=== PATIENT | female | born 1975 | race Caucasian/White ===

== ENCOUNTER 2017-10-17 09:16 | Emergency (ER) | payer OTHER, SELFPAY ==
[2017-10-17 09:39] VITALS: BP 141/81; PULSE 71; RESP 20; TEMP 37.3; O2SAT 96; BMI 43.1
[2017-10-17 09:50] LABS: UTC Influenza A Antigen Positive (Negative); UTC Influenza B Antigen Negative (Negative)
--- NOTE | 2017-10-17 10:30 | HMH.EDUTC ---
[facility] [place] Clinical Impression: Influenza Disposition: Home, Self-Care Condition on Discharge: Good Instructions: Influenza Additional Instructions: ? Start Tamiflu today if you are going to take it. Discussed risk and possible benefits. ? Lots of rest ? Increase Fluids water, Gatorade, powerade, pedialyte,if /toddler/child ? Alternate Tylenol and / or ibuprofen as discussed for fever, aches, chills x 24 hours without medication for symptoms ? Follow up IMMEDIATELY for new or worsening Symptoms OR no noticeable improvement over the next 48-72 hours, 911 for difficulty or breathing ? You or your child area contagious until no fever, aches, chills for 24 hours with medication for symptoms Prescriptions: Brompheniramine/Pseudoephed/Dm [Bromfed DM Cough Syrup 5mL] 10 ml PO Q4H #200 syrup Oseltamivir Phosphate [Tamiflu 75mg Capsule] 75 mg PO BID #10 capsule Referrals: Vernon Grubbs MD [Primary Care Provider] - Time of Disposition: 10:37 Medical Decision Making Vital Signs: 10/17/17 09:39 Temperature 99.1 F Temperature Source Oral Pulse Rate [Right Brachial] 71 Respiratory Rate 20 Blood Pressure [Right Arm] 141/81 Blood Pressure Mean [Right Arm] 101 Blood Pressure Source [Right Arm] Automatic Cuff Blood Pressure Position [Right Arm] Sitting 02 Sat by Pulse Oximetry 96 Oxygen Delivery Method Room Air - Lab Data Lab Results 10/17/17 09:48: Influenza Type A Ag Positive A, Influenza Type B Ag Negative - Alan Inquiry Pt receiving controlled substance: No Alan was queried for this patient: No [facility] [place] - General Stated complaint: chills,vomiting,diarrhea Mode of Arrival: Ambulatory Source of Information: Patient Limitations: No Limitations Description of Symptoms (Recalled from Triage Doc. by RN): head ache, bilateral ear pain, and chest congestion, chills and fever HEENT Symptoms (Recalled from RN notes): Yes Resp Symptoms (Recalled from RN notes): Yes Skin Symptoms (Recalled from RN notes): No MS Symptoms (Recalled from RN notes): No Functional Status (Recalled from RN notes): na - History of Present Illness Provider Complaint: Patient state that she has been having flu like symtpoms that has continued to get worse since Sunday and yesterday she began to run a fever and today she feels worse Onset (ago): day(s) (2-3) Severity: mild, moderate Severity scale (1-10): 3 Relieving factors: none Exacerbating factors: none Treatments prior to arrival: NSAID - Related Data Previous Rx's Medication Instructions Recorded Brompheniramine/Pseudoephed/Dm 10 ml PO Q4H #200 syrup 10/17/17 [Bromfed DM Cough Syrup 5mL] Oseltamivir Phosphate [Tamiflu 75 mg PO BID #10 cap 10/17/17 75mg Capsule] Allergies Allergy/AdvReac Type Severity Reaction Status Date / Time No Known Allergies Allergy Unverified 10/02/17 15:10 - Worker's Comp Is this a Worker's Comp case?: No [facility] History - *Social History Alcohol Intake: never - Psychiatric History Expresses thoughts of harming self/others: None Suicide Plan Description: No Plan - Constitutional Reports chills, Reports fever(s) - ENT Reports sinus pain - Respiratory Reports cough - Musculoskeletal Reports body aches Physical Exam - General General appearance: alert, in no apparent distress - Expanded ENT Exam Comment: Throat red, irritated clear drainage reported from nose - Respiratory Respiratory exam: Present: normal lung sounds bilaterally. Absent: respiratory distress - Cardiovascular Cardiovascular exam: Present: regular rate, normal rhythm. Absent: JVD - Abdominal Exam Abdominal exam: Present: soft, normal bowel sounds. Absent: distention, tenderness, guarding - Neurological Exam Neurological exam: Present: alert, oriented X3
--- NOTE | 2017-10-17 10:34 | ED_ITS ---
[facility] [place] Disposition Clinical Impression: Influenza Disposition: Home, Self-Care Condition on Discharge: Good Instructions: Influenza Additional Instructions: ? Start Tamiflu today if you are going to take it. Discussed risk and possible benefits. ? Lots of rest ? Increase Fluids water, Gatorade, powerade, pedialyte,if /toddler/child ? Alternate Tylenol and / or ibuprofen as discussed for fever, aches, chills x 24 hours without medication for symptoms ? Follow up IMMEDIATELY for new or worsening Symptoms OR no noticeable improvement over the next 48-72 hours, 911 for difficulty or breathing ? You or your child area contagious until no fever, aches, chills for 24 hours with medication for symptoms Prescriptions: Brompheniramine/Pseudoephed/Dm [Bromfed DM Cough Syrup 5mL] 10 ml PO Q4H #200 syrup Oseltamivir Phosphate [Tamiflu 75mg Capsule] 75 mg PO BID #10 capsule Referrals: Vernon Grubbs MD [Primary Care Provider] - Time of Disposition: 10:37 Medical Decision Making Vital Signs: 10/17/17 09:39 Temperature 99.1 F Temperature Source Oral Pulse Rate [Right Brachial] 71 Respiratory Rate 20 Blood Pressure [Right Arm] 141/81 Blood Pressure Mean [Right Arm] 101 Blood Pressure Source [Right Arm] Automatic Cuff Blood Pressure Position [Right Arm] Sitting 02 Sat by Pulse Oximetry 96 Oxygen Delivery Method Room Air - Lab Data Lab Results 10/17/17 09:48: Influenza Type A Ag Positive A, Influenza Type B Ag Negative - Alan Inquiry Pt receiving controlled substance: No Alan was queried for this patient: No [facility] [place] HPI - General Stated complaint: chills,vomiting,diarrhea Mode of Arrival: Ambulatory Source of Information: Patient Limitations: No Limitations Description of Symptoms (Recalled from Triage Doc. by RN): head ache, bilateral ear pain, and chest congestion, chills and fever HEENT Symptoms (Recalled from RN notes): Yes Resp Symptoms (Recalled from RN notes): Yes Skin Symptoms (Recalled from RN notes): No MS Symptoms (Recalled from RN notes): No Functional Status (Recalled from RN notes): na - History of Present Illness Provider Complaint: Patient state that she has been having flu like symtpoms that has continued to get worse since Sunday and yesterday she began to run a fever and today she feels worse Onset (ago): day(s) (2-3) Severity: mild, moderate Severity scale (1-10): 3 Relieving factors: none Exacerbating factors: none Treatments prior to arrival: NSAID - Related Data Previous Rx's Medication Instructions Recorded Brompheniramine/Pseudoephed/Dm 10 ml PO Q4H #200 syrup 10/17/17 [Bromfed DM Cough Syrup 5mL] Oseltamivir Phosphate [Tamiflu 75 mg PO BID #10 cap 10/17/17 75mg Capsule] Allergies Allergy/AdvReac Type Severity Reaction Status Date / Time No Known Allergies Allergy Unverified 10/02/17 15:10 - Worker's Comp Is this a Worker's Comp case?: No [facility] History - *Social History Alcohol Intake: never - Psychiatric History Expresses thoughts of harming self/others: None Suicide Plan Description: No Plan - Constitutional Reports chills, Reports fever(s) - ENT Reports sinus pain - Respiratory Reports cough - Musculoskeletal Reports body aches Physical Exam - General
== END 2017-10-17 10:52 | disposition home or self-care (01) ==
PROVIDERS: Emergency Provider Nurse Practitioner; Family Provider Family Medicine; PCP Family Medicine
DX: J10.1 Influenza due to other identified influenza virus with other respiratory manifestations (principal)
CPT/HCPCS: 87276; 87804; 99202

== ENCOUNTER 2020-08-28 14:58 | Emergency (ER) | payer OTHER, SELFPAY ==
[2020-08-28 15:19] VITALS: BP 134/89; PULSE 68; RESP 18; TEMP 36.6; O2SAT 92; BMI 48.2
[2020-08-28 15:39] VITALS: BP 134/89; PULSE 68; RESP 18; TEMP 36.6; O2SAT 92
== END 2020-08-28 15:40 | disposition home or self-care (01) ==
PROVIDERS: Emergency Provider Nurse Practitioner; PCP Family Medicine
DX: Z23 Encounter for immunization (principal)
CPT/HCPCS: 90686; G0008

== ENCOUNTER 2022-11-17 07:20 | Emergency (ER) | payer OTHER, SELFPAY ==
[2022-11-17] VITALS (8 sets, daily range): BP systolic 106–158; BP diastolic 66–90; PULSE 71–91; RESP 16–18; TEMP 36.7–36.8; O2SAT 93–97; BMI 39.7
--- NOTE | 2022-11-17 07:49 | HMH.EDGENADL ---
Discharge Plan Disposition Patient Disposition: Home, Self-Care Condition: Good Prescriptions Prescriptions: No Action amoxicillin 500 mg capsule 500 mg PO BID 10 Days Qty: 20 0RF Referrals Follow up/Referrals: Vernon Grubbs MD [Primary Care Provider] - See instructions Activity Restrictions/Add. Instructions Additional Instructions/Restrictions: Given diagnosed with COVID-19 today. You have a viral syndrome associated with this. This includes the nausea if you felt in addition to the headache and body aches that you have been feeling. We discussed the risks and benefits of oral antiviral medications for COVID. I do not feel that you fall into high risk category and Paxlovid another medications are not indicated. We will treat this supportively including Tylenol and ibuprofen as discussed. You may take 800 mg of ibuprofen 3 times a day with food and 1000 mg of acetaminophen 3 times a day as needed for fever and/or body aches. Please stay well-hydrated please return if you are concerned. Most importantly if you have increasing shortness of breath please return. Clinical Impressions Clinical Impression: COVID-19, Acute viral syndrome Discharge ED Provider: Yoel Holland General Adult HPI General Chief complaint: Headache Stated complaint: sore throat,headache Time Seen by Provider: 11/17/22 07:49 Mode of Arrival: Ambulatory Source of Information: Patient Limitations: No Limitations Description of Symptoms (Recalled from ER Triage Doc. by RN): Pt reports headache, body aches, chills for 2-3 days. Pt reports has been using nyquill for her symptoms. History of Present Illness HPI narrative: Patient is a 47-year-old female with no significant past medical.? She presents today with multiple complaints including sore throat headache nausea vomiting not relieved by ibuprofen yesterday evening she took 400 mg of ibuprofen without any relief she also complains of a mild cough.? She has not had any further vomiting this morning.? She denies any significant throat pain ear pain urinary symptoms or shortness of breath.? She has not had any additional antipyretics this morning.? Additionally she has not had any antiemetics. Additionally she states that her had similar symptoms a few days ago and has had complete symptomatic resolution. She states that she is vaccinated for flu and COVID. Related Data Previous Rx's Medication Instructions Recorded amoxicillin 500 mg capsule 500 mg PO BID sinus 10 days #20 07/27/21 caps Allergies Allergy/AdvReac Type Severity Reaction Status Date / Time No Known Allergies Allergy Verified 07/27/21 16:57 [facility] Disclaimer: The information contained in this section may have been updated after the patient was seen, as this information can be updated by other users. Social History Smoking Status: Never smoker alcohol intake: never current occupational status: employed Travel in the last 8 weeks: None household members: family housing: house ROS Obtained: Yes All systems reviewed & no additional complaints except as documented Physical Exam General General appearance: alert and in no apparent distress Head Head exam: atraumatic and normocephalic Eye Eye exam: Present PERRL and EOMI ENT ENT exam: Present normal exam and normal external ear exam Neck Neck exam: Present normal inspection; Absent meningismus or lymphadenopathy Chest Chest inspection: Present normal inspection and symmetric chest wall rise; Absent tenderness Respiratory Respiratory exam: Present normal lung sounds bilaterally; Absent respiratory distress, wheezes, stridor, accessory muscle use or prolonged expiratory phase Cardiovascular Cardiovascular exam: Present regular rate and normal rhythm Neurological Exam Neurological exam: Present alert and oriented X3 Medical Decision Making Alan Inquiry Pt receiving controlled substance: No Vital Signs: 11/17/22 07:21 11/17
--- NOTE | 2022-11-17 07:56 | XR_ITS ---
FINAL REPORT CLINICAL HISTORY: dyspnea, cough, fever COMPARISON: None FINDINGS: A single portable view of the chest was obtained. The heart size and pulmonary vascularity are within normal limits. The mediastinum is within normal limits. There is mild right lung base atelectasis or pneumonia. The bony thorax is intact. IMPRESSION: Mild right lung base atelectasis or pneumonia. Reviewed, Interpreted and Dictated by Lambert Hsu III, MD Transcribed by Toña Freeman Authenticated and [facility]
[2022-11-17 07:57] LABS: Influenza A, PCR Not Detected (NotDetected); Influenza B, PCR Not Detected (NotDetected)
[2022-11-17 08:40] LABS: Coronavirus 19, PCR Detected (NotDetected)
== END 2022-11-17 11:10 | disposition home or self-care (01) ==
PROVIDERS: Emergency Provider Student in an Organized Health Care Education/Training Program; PCP Family Medicine
DX: U07.1 COVID-19 (principal); B34.9 Viral infection, unspecified; Z20.822 Contact with and (suspected) exposure to COVID-19
CPT/HCPCS: 71045; 96361; 96374; 96375; 99285; C9803; U0003; U0005

== ENCOUNTER 2023-08-13 10:41 | Emergency (ER) | payer OTHER, SELFPAY ==
[2023-08-13 10:43] VITALS: BP 179/101; PULSE 69; RESP 18; TEMP 36.7; O2SAT 100; BMI 42.9
--- NOTE | 2023-08-13 11:00 | XR_ITS ---
FINAL REPORT CLINICAL HISTORY: knee pain COMPARISON: AP and frog-leg lateral views of the right femur were obtained. FINDINGS: RIGHT FEMUR: Mild degenerative changes present at both the hip and the knee on the right side. No acute bony abnormality is identified. No evidence of fracture or dislocation is seen. IMPRESSION: Mild degenerative change present at both the hip and knee, no acute bony abnormalities identified. Reviewed, Interpreted and Dictated by Lambert Hsu III, MD Transcribed by Lorrie Mckay Authenticated and [facility]
--- NOTE | 2023-08-13 11:00 | XR_ITS ---
FINAL REPORT CLINICAL HISTORY: knee pain COMPARISON: None FINDINGS: Three views of the right knee reveal no evidence of fracture or dislocation. The bony alignment is normal. Mild degenerative change is present. A small joint effusion is present. No localized soft tissue abnormality is identified. IMPRESSION: Mild degenerative change with a small joint effusion. No acute bony abnormality identified. Reviewed, Interpreted and Dictated by Lambert Hsu III, MD Transcribed by Lorrie Mckay Authenticated and [facility]
--- NOTE | 2023-08-13 11:00 | XR_ITS ---
FINAL REPORT CLINICAL HISTORY: knee pain COMPARISON: None FINDINGS: There is no acute fracture or dislocation. Mild degenerative change of both the knee and the ankle is present. There is no soft tissue abnormality. A small plantar calcaneal spur is present. IMPRESSION: Degenerative change as described, no acute bony abnormality. Reviewed, Interpreted and Dictated by Lambert Hsu III, MD Transcribed by Lorrie Mckay Authenticated and [facility]
--- NOTE | 2023-08-13 11:12 | PC.NURSE ---
Pt gone to RAD via wheelchair
--- NOTE | 2023-08-13 11:12 | PC.NURSE ---
pt going to radiology via w/c
--- NOTE | 2023-08-13 11:17 | HMH.EDGENADL ---
Discharge Plan Disposition Patient Disposition: Home, Self-Care Condition: Good Prescriptions Prescriptions: New naproxen 500 mg tablet 500 mg PO BID PRN (Reason: pain) Qty: 20 0RF No Action amoxicillin 500 mg capsule 500 mg PO BID 10 Days Qty: 20 0RF Referrals Follow up/Referrals: Vernon Grubbs MD [Primary Care Provider] - See instructions Geoffrey Lorenz DO [Staff Physician] - See instructions Activity Restrictions/Add. Instructions Additional Instructions/Restrictions: You were evaluated in the emergency department today. Use crutches as needed. Take Tylenol and naproxen at home as needed for pain. We sent in a prescription for naproxen for you to have. Follow-up outpatient with orthopedics. Please call Dr. Lorenz's office to set up an appointment. Rest, ice, and keep your knee elevated. Return to the emergency department for any new or worsening symptoms. Clinical Impressions Clinical Impression: Acute pain of right knee Stand Alone Forms Stand Alone Forms: Work/School Release Instructions Patient Instructions: DI for Knee Pain Discharge ED Provider: Seema Musa General Adult HPI General Chief complaint: Fall Stated complaint: [id number] right knee injury Time Seen by Provider: 08/13/23 10:56 Mode of Arrival: Wheelchair Source of Information: Patient Limitations: No Limitations Description of Symptoms (Recalled from ER Triage Doc. by RN): Patient states that she fell at work last night and injured her right knee. Complaint of pain and swelling. States she took Alieve and put icy hot on it with no relief. History of Present Illness HPI narrative: This patient is a 48-year-old female with a history of obesity presenting to the emergency department for evaluation with concern for right knee pain. 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 Since then, she has felt knee instability when she walks. She took Aleve and IcyHot on it without good relief. She notes that it is swollen. She denies any other injuries. She did not hit her head or lose consciousness. She denies any back pain, hip pain, or other issues. Related Data Previous Rx's Medication Instructions Recorded amoxicillin 500 mg capsule 500 mg PO BID sinus 10 days #20 07/27/21 caps naproxen 500 mg tablet 500 mg PO BID PRN pain #20 tabs 08/13/23 Allergies Allergy/AdvReac Type Severity Reaction Status Date / Time No Known Allergies Allergy Verified 07/27/21 16:57 [facility] Disclaimer: The information contained in this section may have been updated after the patient was seen, as this information can be updated by other users. Social History Smoking Status: Never smoker alcohol intake: never current occupational status: employed Travel in the last 8 weeks: None household members: family housing: house ROS Obtained: Yes All systems reviewed & no additional complaints except as documented Physical Exam General General appearance: alert and in no apparent distress Head Head exam: atraumatic and normocephalic Eye Eye exam: Present normal appearance, PERRL and EOMI ENT ENT exam: Present normal exam, normal oropharynx, mucous membranes moist and normal external ear exam Neck Neck exam: Present normal inspection, full ROM and trachea midline; Absent tenderness Chest Chest inspection: Present normal inspection and symmetric chest wall rise; Absent tenderness Respiratory Respiratory exam: Present normal lung sounds bilaterally; Absent respiratory distress, wheezes, stridor or accessory muscle use Cardiovascular Cardiovascular exam: Present regular rate and normal rhythm Abdominal Exam Abdominal exam: Present soft; Absent distention, tenderness or guarding Extremities Exam Extremities exam: Present full ROM, tenderness and normal capillary refill; Absent edema Expanded Lower Extremity Exam Right:
[2023-08-13 13:24] VITALS: BP 179/101; PULSE 69; RESP 16; TEMP 36.7
== END 2023-08-13 13:24 | disposition home or self-care (01) ==
PROVIDERS: Emergency Provider Emergency Medicine; PCP Family Medicine
DX: M25.561 Pain in right knee (principal); E66.9 Obesity, unspecified; W19.XXXA Unspecified fall, initial encounter
CPT/HCPCS: 73552; 73562; 73590; 99284

== ENCOUNTER → 2024-03-11 10:15 | Day surgery (SDC) | payer OTHER, SELFPAY ==
[2024-03-06 12:28] VITALS: BMI 45.1
[2024-03-11] VITALS (8 sets, daily range): BP systolic 110–158; BP diastolic 52–87; PULSE 60–66; RESP 18; TEMP 36.1–36.6; O2SAT 94–99
[2024-03-11] MEDS: CYCLOPENTOLATE 2% OPHTH SOLN 2ML BOTTLE OP ×3 (11:48→11:49)
[2024-03-11] MEDS: TETRACAINE 0.5% OPTH SOL 15ML OP ×3 (11:48→11:49)
[2024-03-11] MEDS: PHENYLEPHRINE 2.5% OPHTH SOLN 2ML OP ×3 (11:48→11:49)
[2024-03-11] MEDS: MIDAZOLAM 2MG/2ML VIAL 1 MG IV (13:00)
[2024-03-11] MEDS: LIDOCAINE 1% PF 2ML AMPULE 2 ML IJ (13:10)
[2024-03-11] MEDS: TIMOLOL 0.5% OPTH SOLN 5ML OP (13:10)
[2024-03-11] MEDS: TOBRAMYCIN/DEX OPTH SUSP 2.5ML OP (13:10)
--- NOTE | 2024-03-25 13:25 | HMH.PROCNOTE ---
[facility] Procedure Note Date: 03/11/24 Time: 13:25 Procedure Note:: Preoperative Diagnosis: Cataract combined NS Cortical Complex [Left] Eye Postop diagnosis: same Operation: Microscopic phacoemulsification with intraocular lens implant [Left] Eye Specimen: None Blood Loss: None The patient was examined in the office with a complaint of poor vision in the [left] eye. The patient reports that this interferes with ADLs such as reading, watching TV and/or driving or the vision is like looking through a foggy haze and is very troubling. The patient was examined and found to have a visually significant cataract with best corrected vision of [20/CF3ft] by refraction and/or glare testing. Treatment options, risks and benefits were explained and the patient elected to have cataract surgery in an attempt to improve their vision. The patient had the eye anesthetized with topical tetracaine, the eye ways prepped and draped in the usual fashion for cataract surgery. A paracentesis and a temporal keratotomy were made. 0.2cc of 1% lidocaine PF was placed into the anterior chamber. And aqueous/viscoelastic exchange was done and a 360 degree capsulorexis was performed. Through hydrodissection and delineation with BSS on a cannula was done. The lens nucleus was phecoemulsified with CDE of [7.80]. Residual cortical material was removed using automated I&A The capsular bag was deepened with viscoelastica and a PCIOL was placed in the capsular bag with good centration and stability. Residual viscoelastic was removed using automated I&A. The keratotomy incision was hydrated with BSS on a cannula. The wound were checked and found to be water tight. IOP was checked digitally and adjusted as needed so as not to be too high. 1 drop of timolol 0.5%, ofloxacin, prednisolone acetate and ketorolac was instilled and eye shield taped over the eye. The patient was taken to recovery in good condition and will be seen postoperatively.
== END | disposition home or self-care (01) ==
PROVIDERS: PCP Family Medicine; Visit Provider Ophthalmology
PROC: (CPT 66984; principal; 2024-03-11 13:30)
DX: H25.12 Age-related nuclear cataract, left eye (principal); H53.8 Other visual disturbances
CPT/HCPCS: 66984; V2632

== ENCOUNTER 2025-05-21 09:45 | Outpatient (CLI) | payer OTHER, SELFPAY ==
[2025-05-21 15:06] LABS: Hematocrit 47.2 % (37.0-47.0); Hemoglobin 14.4 g/dL (12.2-16.2); Immature Granulocytes % 0 %; Mean Corpuscular HGB Conc 30.5 g/dL (31.8-35.4); Mean Corpuscular Hemoglobin 29.8 pg (27.0-31.2); Mean Corpuscular Volume 97.7 fl (81-99); Nucleated Red Blood Cells % 0 %; Platelet Count 158 K/mm3 (142-424); Red Blood Count 4.83 M/mm3 (4.20-5.40); Red Cell Distribution Width-SD 53.0 fL; White Blood Count 5.7 K/mm3 (4.8-10.8)
[2025-05-21 15:44] LABS: Albumin Level 4.1 g/dl (3.5-5.0); Chloride 108 mmol/L (98-107); Potassium 4.3 mmoL/L (3.5-5.1); Sodium 145 mmol/L (136-145)
[2025-05-21 15:47] LABS: Alanine Aminotransferase 42 U/L (12-78); Albumin/Globulin Ratio 1.5 (1.1-1.8); Alkaline Phosphatase 84 U/L (38-126); Anion Gap 13.3 mEq/L (5-15); Aspartate Amino Transferase 48 U/L (14-36); Bilirubin,Total 0.3 mg/dl (0.2-1.3); Blood Urea Nitrogen 14 mg/dl (7-17); Carbon Dioxide 28 mmol/L (22.0-30.0); Cholesterol 162 mg/dl (140-200); Creatinine,Serum 0.70 mg/dl (0.52-1.04); Estimated Glomerular Filt Rate 88 ml/min (>60); GFR (African American) 106 ML/MIN (>60); Globulin 2.8 g/dL (1.3-3.2); Total Protein,Serum 6.9 g/dl (6.3-8.2); Triglycerides 92 mg/dl (30-150)
[2025-05-21 15:48] LABS: Calcium 9.0 mg/dl (8.4-10.2); Glucose 91 mg/dl (74-100); HDL Cholesterol 46 mg/dl (40-60)
[2025-05-21 16:18] LABS: Thyroid Stimulating Hormone 1.33 uIU/mL (0.465-4.68)
== END 2025-05-21 23:59 | disposition home or self-care (01) ==
LOC: LAB.DROPOF 05-22 10:58
PROVIDERS: PCP Family Medicine; Visit Provider Family Medicine
DX: M54.9 Dorsalgia, unspecified (principal); E66.9 Obesity, unspecified; R53.83 Other fatigue
CPT/HCPCS: 80053; 80061; 84443; 85025

== ENCOUNTER 2025-06-02 09:09 | Outpatient (CLI) | payer OTHER, SELFPAY ==
--- NOTE | 2025-06-02 09:22 | XR_ITS ---
FINAL REPORT CLINICAL HISTORY: Right shoulder pain COMPARISON: None FINDINGS: RIGHT SHOULDER Three views demonstrate no acute fracture or dislocation. The visualized joint spaces are normally aligned. The soft tissues are unremarkable. IMPRESSION: No acute process. Reviewed, Interpreted and Dictated by Preston Garcia MD Transcribed by Toña Freeman Authenticated and [facility]
--- NOTE | 2025-06-02 09:22 | XR_ITS ---
FINAL REPORT CLINICAL HISTORY: back pain COMPARISON: None FINDINGS: 3 views of the lumbar spine were obtained. There is no evidence of fracture. There is no malalignment. The vertebrae are normal in height. There is mild anterior osteophyte formation at L3-4 and L4-5. No paraspinous soft tissue abnormalities identified. IMPRESSION: No acute bony abnormality. Mild osteophyte formation. Reviewed, Interpreted and Dictated by Preston Garcia MD Transcribed by Toña Freeman Authenticated and [facility]
--- NOTE | 2025-06-02 09:22 | XR_ITS ---
FINAL REPORT CLINICAL HISTORY: Left shoulder pain COMPARISON: None FINDINGS: LEFT SHOULDER 3 views of the left shoulder were obtained. There is no acute fracture or dislocation. Visualized joint spaces are normally aligned. Soft tissues are unremarkable. IMPRESSION: No acute bony abnormality. Reviewed, Interpreted and Dictated by Preston Garcia MD Transcribed by Toña Freeman Authenticated and . [facility]
== END 2025-06-02 23:59 | disposition home or self-care (01) ==
LOC: RAD 09:10
PROVIDERS: PCP Family Medicine; Visit Provider Family Medicine
DX: M25.78 Osteophyte, vertebrae (principal); M25.511 Pain in right shoulder; M25.512 Pain in left shoulder; M25.611 Stiffness of right shoulder, not elsewhere classified; M25.612 Stiffness of left shoulder, not elsewhere classified
CPT/HCPCS: 72100; 73030

== ENCOUNTER 2025-06-22 09:20 | Outpatient (CLI) | payer OTHER, SELFPAY ==
[2025-06-22 16:01] LABS: Albumin Level 3.8 g/dl (3.5-5.0)
[2025-06-22 16:04] LABS: Alanine Aminotransferase 47 U/L (12-78); Alkaline Phosphatase 77 U/L (38-126); Aspartate Amino Transferase 63 U/L (14-36); Bilirubin,Direct 0.2 mg/dl (0.0-0.4); Bilirubin,Indirect 0.3 mg/dL (0.0-0.9); Bilirubin,Total 0.5 mg/dl (0.2-1.3); Bilirubin,Unconjugated 0.3 mg/dL (0.0-1.1); Total Protein,Serum 6.3 g/dl (6.3-8.2)
--- OUTSIDE RECORDS SUMMARY | 2025-06-23 09:30 | XMS_ITS | Patient Health Record ---
[facility] [address] [facility] [place] [address] [place] [id number] Care Team Providers Care Campus Safety Officer Name Role Phone Humera Vernon Primary Care Provider Allergies No Known Allergies Reason For Referral No Information Medications Medication SIG (Take, Route, Frequency, Duration) Notes Start Date End Date Status Fluconazole 150 MG 1 tab(s) orally once 02/11/2020 Not-Taking Medrol 4 MG as directed orally; Duration: 6 days 09/08/2020 Not-Taking Cyclobenzaprine HCl 10 MG 1 tab(s) orall y 3 times a day as needed 09/08/2020 Not-Taking [id number]-Zbgpkfzm-EM 30-2-10 MG/5ML 5ml orally 4 times per day, prn 06/17/2021 Active Meclizine HCl 25 MG 1 tab(s) orally 3 times a day Not-Taking Sudafed Sinus Congestion 12HR 120 MG 1 tab(s) orally every 12 hours; Duration: 10 day(s) 01/28/2020 Not-Taking Medrol 4 MG as directed orally daily; Duration: 6 days 01/21/2020 Not-Taking Cefdinir 300 MG 1 cap(s) orally ever y 12 hours; Duration: 7 days 02/11/2020 Not-Taking Flonase Allergy Relief 50 MCG/ACT 1 spray(s) intranasally once a day Not-Taking Immunizations Vaccine Route Administration Date Status Comme nts Fluzone PF Quad (6-35 months) Unknown 08/28/2020 Administered Fluzone Quad (6months&older) IM Intramuscular 08/17/2019 Administered xFlu shot- 6months-36 months of [id number]-trivalent Unknown 08/24/2014 Administered Problems Problem Type SNOMED Code ICD Code Onset Dates Problem Status W/U Status Risk Notes Problem Morbid obesity (929455459) Morbid obesity (278.01) Active confirmed Problem Morbid obesity (847894299) Morbid obesity due to excess calories (E66.01) Active confirmed Plan Of Treatment No Information Insurance Providers Payer Name Payer Address Payer Phone Subscriber Number Group Number Insured Name Patient Relationship to Insured Coverage Start Date Coverage End Date [facility] [address] [address] [place] [address] [id number] Rosemarie Bradley Self - patient is the insured Medical (General) History Medical History History ICD Code endometriosis Surgical History Surgery Date(Month/Year) tonsillectomy Hysterectomy Aug 21 2014 Hospitalization History Reason Date(Month/Year) [facility]-Flu 10/2017
== END 2025-06-22 23:59 ==
LOC: LAB.DROPOF 06-23 09:24
PROVIDERS: PCP Family Medicine; Visit Provider Family Medicine
DX: R74.8 Abnormal levels of other serum enzymes (principal)
CPT/HCPCS: 80076